=== PATIENT | female | born 1955 | race Two or more races ===

== ENCOUNTER 2023-08-24 00:23 | Emergency (ER) | payer OTHER ==
[~2023-08-24] VITALS: Ht 167.6 cm; Wt 68.0 kg
[2023-08-24] MEDS ORDERED: KETOROLAC TROMETHAMINE 30 MG VIAL IV STA (04:11)
[2023-08-24] MEDS ORDERED: ACETAMINOPHEN 500 MG GEL..CAP PO STA (04:12)
[2023-08-24] MEDS ORDERED: DEXAMETHASONE SODIUM PHOSPHATE 4 MG/ML VIAL IV STA (04:12)
[2023-08-24 05:17] LABS: HEMATOCRIT 32.9 % (36.0-45.00); HEMOGLOBIN 11.3 g/dL (12.0-15.00); MEAN CORPUSCULAR HEMOGLOBIN 31.3 pg (27.00-32.0); MEAN CORPUSCULAR HGB CONC 34.4 g/dl (32.0-36.0); PLATELET COUNT 268 K/uL (150-450); RED BLOOD COUNT 3.62 M/uL (4.00-6.00); RED CELL DISTRIBUTION WIDTH 12.8 % (11.5-14.5)
[2023-08-24 05:37] LABS: ANION GAP 6 (10.0-20.0); BLOOD UREA NITROGEN 14 mg/dL (7-18); BUN CREA RATIO 18 (7.0-25.0); CALCIUM 9.2 mg/dL (8.5-10.1); CARBON DIOXIDE 30 mEq/L (21-32); CHLORIDE 108 mmol/L (98-107); CREATININE SERUM 0.79 mg/dL (0.55-1.02); GFR 72.81; GLUCOSE FASTING 101 mg/dL (65-100); OSMOLALITY SERUM 280 MOSM/KG (275-295); POTASSIUM 4.04 mEq/L (3.5-5.1); SODIUM 140 mmol/L (136-145)
[2023-08-24 05:46] LABS: C-REACTIVE PROTEIN < 0.29 MG/DL (0.00-0.29)
[2023-08-24 05:55] LABS: ERYTHROCYTE SEDIMENTATION RATE 23 mm/hr
== END 2023-08-24 06:14 | disposition home or self-care (01) ==
LOC: ER 00:23
DX: M79.89 Other specified soft tissue disorders (principal); Z88.8 Allergy status to other drugs, medicaments and biological substances